=== PATIENT | female | born 1990 | race Caucasian/White ===

== ENCOUNTER 2025-04-28 01:45 | Emergency (ER) | payer MEDICAID ==
[~2025-04-28] VITALS: Ht 160 cm; Wt 85.2 kg
[2025-04-28 01:45] VITALS: TEMP 98.2
[2025-04-28] MEDS: famotidine/PF 10 mg/ml inj IV ONE ×2 (02:10→02:35)
--- NOTE | 2025-04-28 05:57 | Physician Documentation ---
History of Present Illness ~ Chief Complaint: Allergic Reaction Stated Complaint: HIVES ALL OVER BODY Time Seen by MD: 03:19 HPI This is a 34-year-old female past medical history of atopic dermatitis and allergic reactions coming in for hives throughout her body. She denies any shortness of breath but says she has had several episodes in the past has hives progressing to a more serious state involving airway. Vital signs stable on arrival. Unknown trigger. Alert and oriented x3, protecting airway, GCS 15. States she is having some pruritus symptoms started earlier in the day and got progressively worse. No other associated symptoms at this time. Medication Reconciliation Allergies: Coded Allergies: Penicillins (Unverified Allergy, Intermediate, hives, 04/28/25) Past Medical History Smoking Status: Never smoker Physical Exam Vital Signs: Temperature: 98.2, Source: Oral, Heart Rate: 80, Respiratory Rate: 16, BP: 105/62, Pulse Oximetry: 98, Weight: 85.200 Oxygen Flow Rate: 0 Physical Exam General: Awake [no] distress. Verbal Head: No trauma Eyes: Nl lids Nl conjunctiva. No eye discharge ENT: Mucous membranes Nl. Lips Nl. No lesions Neck: Supple. No JVD. No visible mass Resp: Rate normal. No respiratory distress. No retractions. Normal air flow. No wheezes, rhonchi, or rales. Heart: Regular rhythm. No murmur. No rub Abdomen: Soft. Nontender. No guarding. No rebound Musc/skeletal: No calf or popliteal tenderness. No edema Skin: Hives throughout body Neuro: Alert, oriented. Normal speech Progress Results/Orders Results/Orders Completed Orders - HEYDI DANG MD Epinephrine Inj (Adrenalin Inj) (04/28/25 02:07) Methylprednisolone Sod Succ (Solumedrol (04/28/25 02:10) Diphenhydramine Inj (Benadryl Inj.) (04/28/25 02:10) Famotidine/Pf Iv Inj (Pepcid Iv Inj) (04/28/25 02:15) Vital Signs 04/28/25 04/28/25 04/28/25 04/28/25 01:45 04:29 05:38 06:40 Temp 98.2 Pulse 91 80 80 72 Resp 16 16 16 16 B/P (MAP) 144/92 100/55 (70) 105/62 (76) 101/63 Pulse Ox 100 98 98 98 O2 Flow Rate 0 Medical Decision Making Additional information obtaine: old records Findings Patient was given 0.5 IM epi, 125 mg methylprednisolone IV, 25 of Benadryl IV, famotidine 20 mg IV for allergic reaction with risk of anaphylaxis. Code cart and airway box kept close to her room in case patient progressed. She states this is a chronic condition and has not found all of her triggers at this time. She states she has several EpiPens and steroids at home after being offered meds for discharge. Patient was observed for appropriate time after being given epinephrine and has appropriate medication at her disposal. Patient is going to follow up with PCP. She is stable for discharge at this time return precautions discussed and patient expresses understanding. Patient is by herself a monophasic flow and sacral. Vital signs stable throughout observation. Reviewed nursing notes Reviewed triage notes Did not consult any services. No social abnormalities or concerns Clinical impression: Allergic reaction Differential diagnosis anaphylaxis, contact dermatitis, psoriasis Differential Dx:Considerations: Include: Other (Allergic reaction) Departure Disposition: 01 HOME / SELF CARE / HOMELESS Impression: Primary Impression: Acute allergic reaction Condition: Stable Discharge Instructions: Anaphylactic Reaction, Adult, [id number] Referrals: NO PRIMARY CARE PROVIDER (PCP) Education Educated: Patient Educated regarding: diagnosis, treatment, prognosis, need for follow up Signature Scribe Signature: No scribe Attestation: Signed by Dr. Raya in on April 28 21:37 HEYDI DANG MD Apr 28, 2025 05:57
[2025-04-28 06:40] VITALS: BP 101/63; PULSE 72; RESP 16; O2SAT 98
== END 2025-04-28 06:50 | disposition home or self-care (01) ==
LOC: ER 01:46
DX: T78.49XA Other allergy, initial encounter (principal); Z88.0 Allergy status to penicillin; X58.XXXA Exposure to other specified factors, initial encounter
CPT/HCPCS: 96372; 96374; 96375; 99284; J0169; J1200; J2919; J3490